=== PATIENT | female | born 1975 | race Caucasian/White ===

== ENCOUNTER 2024-11-14 08:19 | Outpatient (AMB) | payer MEDICARE, MEDICAID, SELFPAY ==
--- NOTE | 2024-11-14 08:36 | A.OFFPC_ITS ---
Vital Signs 11/14/24 08:42 Height 5 ft 3.58 in Weight 242 lb BMI 42.1 BP 112/76 Blood Pressure Location Rt brachial Position Sitting Respiration 14 Pulse 95 Pulse Source Pulse Oximeter Temp 97.6 F Temp Source Oral Pulse Oximetry (%) 97 Oxygen Delivery Method Room Air Intake Visit Reasons: requesting CPE Intake Note: Physical Glove Turner And Former Automatic Required: No Allergies Penicillins Allergy (Intermediate, Verified 11/14/24 08:40) Rash Tobacco use date assessed: 11/14/24 Dental Screening Dental Screen Date: 11/14/24 Did you have a dental visit in the last 12 months?: Yes Did you have a dental problem in the last 6 months where you did not have access to dental care?: No Was dental information given to patient?: Patient has dentist HPI HPI Comments History of Present Illness Details The patient is a 49 year old female with a past medical history of schizophrenia, hep C, asthma, iliac fracture 2016 presenting to [facility]. Moved from [place]-Dr Gonzales. Has been seen in the past year. Schizophrenia-[facility] in [place]. 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 HEENT: Denies changes in vision and hearing. RESPIRATORY: Denies SOB and cough. CV: Denies palpitations and CP GI: Denies abdominal pain, nausea, vomiting and diarrhea. : Denies dysuria and urinary frequency. MSK: Denies new myalgia and joint pain. SKIN: Denies rash and pruritus. NEUROLOGICAL: Denies headache PSYCHIATRIC: Denies recent changes in mood. PHYSICAL EXAM: GENERAL: Alert and oriented x 3. NAD EYES: EOMI. Anicteric. HENT: Moist mucous membranes. No scleral icterus. No cervical lymphadenopathy. LUNGS: Clear to auscultation bilaterally. CARDIOVASCULAR: Regular rate and rhythm. No murmur. No JVD. ABDOMEN: Soft, non-tender +bs EXTREMITIES: No edema. Non-tender. SKIN: No rashes or lesions. Warm. NEUROLOGIC: No focal neurological deficits. CN II-XII grossly intact PSYCHIATRIC: Cooperative. Appropriate mood and affect [facility] Surgical History (Updated 11/14/24 @ 08:53 by Caren Johnson CMA) H/O section History of knee surgery Family History (Updated 11/14/24 @ 08:52 by Caren Johnson CMA) Mother Diabetes Thyroid disease Father Cancer Paternal Grandfather Alcoholism and drug addiction in family Other Substance abuse Social History Housing: House (staying with family) Alcohol intake: never Patient Tobacco Use Status: Current everyday Tobacco user Cigarette Packs Per Day: 0.5 Years Smoked: 30 e-Cigarette/Vaping Use: Never Used Second Hand Smoke Exposure: No Substance Use Type: Marijuana service: No Current occupational status: unemployed and disabled Current occupation: on social security Cognitive needs: No Hearing needs: No Vision needs: No Questionnaire PHQ-9 Over the last 2 weeks, how often have you been bothered by any of the following problems? 1. Little interest or pleasure in doing things: not at all 2. Feeling down, depressed, or hopeless: not at all 3. Trouble falling or staying asleep, or sleeping too much: not at all 4. Feeling tired or having little energy: not at all 5. Poor appetite or overeating: several days 6. Feeling bad about yourself - or that you are a failure or have let yourself or your family down: not at all 7. Trouble concentrating on things, such as reading the newspaper or watching television: not at all 8. Moving or speaking so slowly that other people could have noticed. Or the opposite - being so fidgety or restless that you have been moving around a lot more than usual: not at all 9. Thoughts that you would be better off or of hurting yourself in some way: not at all Total score: 1 Depression Screening Interpretation: Negative Depression Screening Done: Yes 41796 - PHQ-9 Billing: Yes Source: Developed by Drs. Rajeev Ramey, Deepa Edwards, Luis Franco and colleagues, with an educational richelle from [employer]. Thrive Questionnaire Date Thrive assessed: 11/14/24 I am a: Patient What is your living situation today?: I do not have a steady places to live I am temporarily staying with others Within the past 12 months, did the food you bought not last and you didn't have the money to get more?: Sometimes True Within the past 12 months, did you worry whether your food would run out before you got money to buy more?: Sometimes True Do you have trouble paying for medicines?: No Do you have trouble getting transportation to medical appointments?: No Do you have trouble paying your heating and electricity bill?: No Do you have trouble taking care of your child, family member or friend?: No Do you have trouble with day-to-day activities such as bathing, preparing meals, shopping, managing finances, etc.?: No Are you currently unemployed and looking for a job?: No Are you interested in more education?: Yes Please select the resources that you would like help with: Housing/[facility] Currently or been in a relationship where the following occur: Controlled Financially and No concerns reported THRIVE Score: 4 AUDIT C Alcohol Use Questionnaire (AUDIT-C) 1. How often do you have a drink containing alcohol?: Monthly or less 2. How many drinks containing alcohol do you have on a typical day when you are drinking?: 1 or 2 3. How often do you have six or more drinks on one occasion?: Never Total Score: 1 LUIS M-7 AMB Questionnaire LUIS M-7 Date LUIS M - 7 assessed: 11/14/24 Feeling nervous, anxious, or on edge: 0 = Not at all Not being able to stop or control worryin = Not at all Worrying too much about different things: 0 = Not at all Trouble relaxin = Not at all Being so restless that it is hard to sit still: 0 = Not at all Becoming easily annoyed or irritable: 0 = Not at all Feeling afraid as if something awful might happen: 0 = Not at all Total LUIS M-7 score (0-4 normal; 5-9 mild; 10-14 moderate; 15-21 severe): 0 Source: Developed by Drs. Rajeev Ramey, Deepa Edwards, Luis Franco and colleagues, with an educational richelle from [employer]. LUIS M-7 Assessment Billing LUIS M-7 Assessment Tool: LUIS M-7 Assessment 89101 Physical exam (Primary Care) Vital Signs: Last Vital Signs Temp 97.6 F 11/14/24 08:42 Pulse 95 11/14/24 08:42 Resp 14 11/14/24 08:42 BP 112/76 11/14/24 08:42 Pulse Ox 97 11/14/24 08:42 Oxygen Delivery Method Room Air 11/14/24 08:42 BMI result Body Mass Index 42.1 Depression Screening Interpretation: Negative Currently or been in a relationship where the following occur: Controlled Financially and No concerns reported Coding Level of Care Code Est Pt Prev Care 40-64y(58091) Diagnoses Physical exam Z00.00 Encounter to establish care Z76.89 Schizophrenia, unspecified type F20.9 Schizophrenia type: unspecified Additional Codes LUIS M-7 Assessment Billing - LUIS M-7 Assessment Tool: LUIS M-7 Assessment 83720 ([id number]) PHQ-9 - 13435 - PHQ-9 Billing: Yes ([id number]) Assessment & Plan Assessment & Plan (1) Physical exam: Code(s): Z00.00 - Encounter for general adult medical examination without abnormal findings (2) Encounter to establish care: Code(s): Z76.89 - Persons encountering health services in other specified circumstances Category: Medical (3) Schizophrenia: Code(s): F20.9 - Schizophrenia, unspecified Category: Medical Qualifiers: Schizophrenia type: unspecified Qualified Code(s): F20.9 - Schizophrenia, unspecified Plan 49 year old to establish care & CPE Past medical, surgical, social reviewed Schizophrenia is stable on medications. Follows with behavoiral health Preventive measures for age discussed Labs ordered Orders: Orders Complete Blood Count Auto Diff Today R35.89 - Other polyuria, Z13.0 - Encounter for screening for diseases of the blood and blood-forming organs and certain disorders involving the immune mechanism, Z13.220 - Encounter for screening for lipoid disorders, Z13.228 - Encounter for screening for other metabolic disorders Comprehensive Met. Panel Today R35.89 - Other polyuria, Z13.0 - Encounter for screening for diseases of the blood and blood-forming organs and certain disorders involving the immune mechanism, Z13.220 - Encounter for screening for lipoid disorders, Z13.228 - Encounter for screening for other metabolic disorders Hemoglobin A1c Today R35.89 - Other polyuria, Z13.0 - Encounter for screening for diseases of the blood and blood-forming organs and certain disorders involving the immune mechanism, Z13.220 - Encounter for screening for lipoid disorders, Z13.228 - Encounter for screening for other metabolic disorders Lipid Panel Today R35.89 - Other polyuria, Z13.0 - Encounter for screening for diseases of the blood and blood-forming organs and certain disorders involving the immune mechanism, Z13.220 - Encounter for screening for lipoid disorders, Z13.228 - Encounter for screening for other metabolic disorders TSH reflex Free T4 Today R35.89 - Other polyuria, Z13.0 - Encounter for screening for diseases of the blood and blood-forming organs and certain disorders involving the immune mechanism, Z13.220 - Encounter for screening for lipoid disorders, Z13.228 - Encounter for screening for other metabolic disorders MM tomosynthesis screening BI Today Z12.31 - Encounter for screening mammogram for malignant neoplasm of breast Referrals Cologuard Test Z12.11 - Encounter for screening for malignant neoplasm of colon, Z12.12 - Encounter for screening for malignant neoplasm of rectum
--- OUTSIDE RECORDS SUMMARY | 2024-11-14 08:40 | XMS_ITS | Clinical Summary ---
Author Organization [address] Address [address] [place] [address] Phone Care Team Providers Care Consumer Loan Specialist Name Role Phone Bryce Grover MD Primary Care Provider [phone] Surgical History Surgery Date Site/Laterality Comments CARPAL TUNNEL RELEASE PROCEDURE: LA NEUROPLASTY &/TRANSPOS MEDIAN NRV CARPAL TUNNE KNEE ARTHROSCOPY PROCEDURE: LA ARTHROSCOPY AID TX SPINE&/FX KNEE W/O FIXJ; COMMENT: right Medical History Medical History Date Comments PCOS (polycystic ovarian syndrome) DX:PCOS (polycystic ovarian syndrome) Anxiety DX:Anxiety ADHD (attention deficit hype ractivity disorder) DX:ADHD (attention deficit hyperactivity disorder) Depression DX:Depression Right knee pain 11/23/2011 DX:Right knee pa in Vitamin D insufficiency 11/23/2011 DX:Vitam in D insufficiency Family History Medical History Relation Name Comments Other: renal ca Father htn, hyperli pidemia Relation Name Status Comments Father Social History Tobacco Use Types Packs/Day Years Used Date Smoking Tobacco: Every Day Cigarettes Smokeless Tobacco: Never Alcohol Use Standard Drinks/Week Comments No 0 (1 standard drink = 0.6 oz pur e alcohol) Comments Unknown Sex and Gender Information Value Date Recorded Sex Assigned at Not on file Legal Sex Female 11:57 PM EST Gender Identity Not on file Sexual Orientation Not on file Obstetrics History Plan of Treatment Upcoming Encounters Date Type Department Care Team ([facility] st Contact Info) Description 01/26/2025 1:20 PM EST Appointment Radiology Department - [address] [phone] Health Maintenance Due Date Last Done Comments Breast Cancer Screening 1975 Hepatitis B Vaccines (1 of 3 - 19+ 3-dose series) 01/10/1995 Pneumococcal Vaccine: Pediat rics (0 to 5 Years) and At-Risk Patients (6 to 49 Years) (1 of 2 - PCV) 01/10/1995 Cervical Cancer Screening: P ap Smear 01/10/1997 DTaP,Tdap,and Td Vaccines (2 - Td or Tdap) 11/21/2021 11/22/2011 Depression Screening 03/05/2024 Colorectal Cancer Screening: Colonoscopy 09/12/2024 HIV Screening 09/12/2024 Hepatitis C Screening 09/12/2024 Social Influencers of Health Screening 09/12/2024 COVID-19 Vaccine (1 - 2023-2 5 season) 2024 Influenza Vaccine (#1) 2024 HIB Vaccines Aged Out No longer eligi ble based on patient's age to complete this topic HPV Vaccines Aged Out No longer eligi ble based on patient's age to complete this topic Hepatitis A Vaccines Aged Out No long er eligible based on patient's age to complete this topic IPV Vaccines Aged Out No longer eligi ble based on patient's age to complete this topic MMR Vaccines Aged Out No longer eligi ble based on patient's age to complete this topic Meningococcal ACWY Vaccine Aged Out N o longer eligible based on patient's age to complete this topic Meningococcal B Vaccine Aged Out No l onger eligible based on patient's age to complete this topic RSV Immunization Patients Un qian 20 months Aged Out No longer eligible b ased on patient's age to complete this topic Varicella Vaccines Aged Out No longer eligible based on patient's age to complete this topic Insurance [place] - [place] Care Teams Consumer Loan Specialist Relationship Specialty Start Date End Date Bryce Grover MD PCP - General Internal Medicine 11/20/11
[2024-11-14 08:42] VITALS: BP 112/76; PULSE 95; RESP 14; TEMP 36.4; O2SAT 97; BMI 42.1
== END 2024-11-14 09:01 | disposition home or self-care (01) ==
LOC: HO.HMCFM 08:20
PROVIDERS: PCP Internal Medicine; Visit Provider Internal Medicine
DX: Z00.00 Encounter for general adult medical examination without abnormal findings (principal); Z76.89 Persons encountering health services in other specified circumstances; F20.9 Schizophrenia, unspecified

== ENCOUNTER → 2024-11-14 08:19 | Outpatient (BNVA) | payer MEDICARE, MEDICAID, SELFPAY | PROVIDERS: Visit Provider Internal Medicine | DX: Z00.00 Encounter for general adult medical examination without abnormal findings (principal); Z76.89 Persons encountering health services in other specified circumstances; F20.9 Schizophrenia, unspecified; F17.200 Nicotine dependence, unspecified, uncomplicated; Z71.6 Tobacco abuse counseling | CPT/HCPCS: 96127; 99396 ==